=== PATIENT | female | born 1940 | race Caucasian/White ===

== ENCOUNTER 2017-01-15 14:36 | Emergency (ER) | payer MEDICARE, OTHER ==
--- NOTE | 2017-01-15 16:32 | EDM.PDOC ---
ED HPI GENERAL MEDICAL PROBLEM - General Chief Complaint: Lower Extremity Injury/Pain Stated Complaint: POST SURGICAL ISSUES Time Seen by Provider: 01/15/17 14:48 Source of Information: Reports: Patient, Family, RN Notes Reviewed - History of Present Illness INITIAL COMMENTS - FREE TEXT/NARRATIVE: 76-year-old lady presents with left leg swelling, warmth or erythema. She did have cardiac bypass surgery about 2-1/2 weeks ago. Veins were harvested from her left leg. She has had increased swelling and bruising of the left leg since surgery. The bruising is starting to get better. However yesterday and today the warmth and erythema are worse. When she or family called to visit with her providers in [place] they suggested she come here to the ED for evaluation. She is not having chest pain or difficulty breathing. No fever or chills. No swelling or discomfort of the right lower extremity. 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: Musculoskeletal History: Reports: Arthritis Endocrine/Metabolic History: Reports: Diabetes, Type II Social & Family History - Tobacco Use Smoking Status *Q: Never Smoker Second Hand Smoke Exposure: No - Caffeine Use Caffeine Use: Reports: Coffee - Recreational Drug Use Recreational Drug Use: No Review of Systems - Review of Systems Review Of Systems: See Below Mouth/Throat: Reports: No Symptoms Respiratory: Denies: Shortness of Breath, Pleuritic Chest Pain Cardiovascular: Reports: Chest Pain GI/Abdominal: Denies: Abdominal Pain (Mild incisional pain only), Nausea, Vomiting Musculoskeletal: Reports: Leg Pain (She does have some discomforts of the left lower leg just below the knee where there is an area of increased swelling and also some discomfort more distally toward the ankle posteriorly.). Denies: Shoulder Pain, Arm Pain, Back Pain Skin: Reports: Bruising (Large areas of bruising left lower extremity above and below the knee) Neurological: Denies: Numbness, Tingling ED EXAM, GENERAL - Physical Exam Exam: See Below General Appearance: Alert, No Apparent Distress Throat/Mouth: Normal Inspection, Normal Oropharynx Head: Atraumatic Respiratory/Chest: No Respiratory Distress, Lungs Clear, Normal Breath Sounds Cardiovascular: Tachycardia GI/Abdominal: Soft, Non-Tender Back Exam: No: CVA Tenderness (L), CVA Tenderness (R) Extremities: Pedal Edema (Moderate edema of the left lower extremity with areas of warmth and erythema posterior to the knee and of the left lower leg more anteriorly than posteriorly. No major posterior tenderness, right leg without warmth swelling or edema) Course - Vital Signs Last Recorded V/S: Last Vital Signs Temp 99.0 F 01/15/17 14:43 Pulse 103 H 01/15/17 14:43 Resp 16 01/15/17 14:43 BP 135/56 L 01/15/17 14:43 Pulse Ox 97 01/15/17 14:43 - Orders/Labs/Meds Labs: Laboratory Tests 01/15/17 01/15/17 Range/Units 15:57 15:57 WBC 9.12 (3.98-10.04) K/mm3 RBC 2.79 L (3.98-5.22) M/mm3 Hgb 8.3 L (11.2-15.7) gm/L Hct 24.8 L (34.1-44.9) % MCV 88.9 (79.4-94.8) fl MCH 29.7 (25.6-32.2) pg MCHC 33.5 (32.2-35.5) g/dl RDW Std Deviation 47.7 H (36.4-46.3) fL Plt Count 441 H (182-369) K/mm3 MPV 8.9 L (9.4-12.3) fl Neut % (Auto) 79.3 H (34.0-71.1) % Lymph % (Auto) 10.0 L (19.3-51.7) % Beckham % (Auto) 9.1 (4.7-12.5) % Eos % (Auto) 1.0 (0.7-5.8) Baso % (Auto) 0.2 (0.1-1.2) % Neut # (Auto) 7.23 H (1.56-6.13) K/mm3 Lymph # (Auto) 0.91 L (1.18-3.74) K/mm3 Beckham # (Auto) 0.83 H (0.24-0.36) K/mm3 Eos # (Auto) 0.09 (0.04-0.36) K/mm3 Baso # (Auto) 0.02 (0.01-0.08) K/mm3 Sodium 121 L (136-145) mEq/L Potassium 4.3 (3.5-5.1) mEq/L Chloride 90 L (98-107) mEq/L Carbon Dioxide 24 (21-32) mEq/L Anion Gap 11.3 (5-15) BUN 20 H (7-18) mg/dL Creatinine 1.6 H (0.55-1.02) mg/dL Est Cr Clr Drug Dosing 22.92 mL/min Estimated GFR (MDRD) 31 (>60) mL/min BUN/Creatinine Ratio 12.5 L (14-18) Glucose 208 H (83-115) mg/dL Calcium 10.0 (8.5-10.1) mg/dL Total Bilirubin 0.4 (0.2-1.0) mg/dL AST 24 (15-37) U/L ALT 36 (14-59) U/L Alkaline Phosphatase 115 (46-116) U/L Total Protein 5.9 L (6.4-8.2) g/dl Albumin 2.3 L (3.4-5.0) g/dl Globulin 3.6 gm/dL Albumin/Globulin Ratio 0.6 L (1-2) - Re-Assessments/Exams Free Text/Narrative Re-Assessment/Exam: 01/15/17 17:35 ultrasound of leg is negative for DVT. I believe her erythema and warmth is primarily inflammatory reaction from blood in the tissue of the lower leg. She and family state the bruising was actually worse a few days ago but she still does have a moderate amount of bruising present. Her hgb today is 8.3. She is afebrile. White blood count is fine. Chemistries are fine. I will start her on cephalexin 500 mg 3 times a day for 1 week to cover for possible infection componentbut once again I feel this is primarily inflammatory reaction from the prior surgery and hemorrhage in the leg. This has been discussed with patient and her family. I discussed with patient that she should start taking iron supplement once or twice daily. Incised the need for aggressive elevation, calf flexion exercising to try and improve blood flow and to return to ED as needed if symptoms worsening in any way. Departure - Departure Time of Disposition: 17:20 Disposition: Home, Self-Care 01 Condition: Fair Clinical Impression: Leg edema - Discharge Information Prescriptions: Cephalexin 500 mg PO TID #20 capsule Instructions: Edema Referrals: Chino Atkinson MD [Primary Care Provider] - Forms: ED Department Discharge Additional Instructions: The ultrasound of your leg does show a lot of swelling but does not show any sign of blood clot or what we call deep venous thrombosis. Continue your daily aspirin and other medications as prescribed, work hard to keep her leg elevated as much as possible. Work your calf muscle with movement of your foot as discussed multiple times throughout the day. Cephalexin antibiotic to cover for possible infection, take that 3 times daily for 1 week until gone. Return to ED if symptoms worsening in any way.
--- NOTE | 2017-01-15 17:26 | US ---
Left lower extremity deep venous ultrasound: Duplex and color flow imaging was obtained of the left common femoral, superficial femoral, popliteal, posterior tibial and proximal peroneal veins. Peroneal veins more distally could not be visualized. Greater saphenous vein not seen compatible with previous surgery. Findings: Normal phasic flow, augmentation and compression is seen. Scattered fluid is seen within the medial proximal thigh to the ankle. Findings presumably are due to previous surgery with liquefying hematomas. Abscess formation is possible but this should be evident clinically if present. Impression: 1. No findings of deep venous thrombosis within the left lower extremity. 2. Scattered areas of fluid from the proximal mid thigh inferiorly to the ankle. Discussion as noted above. Diagnostic code #3
[2017-01-15 17:47] VITALS: BP 147/56
== END 2017-01-15 17:27 | disposition home or self-care (01) ==
LOC: JD.ED 14:36
DX: R60.0 Localized edema (principal); I10 Essential (primary) hypertension; M19.90 Unspecified osteoarthritis, unspecified site; E11.9 Type 2 diabetes mellitus without complications; Z95.1 Presence of aortocoronary bypass graft
CPT/HCPCS: 36415; 80053; 85025; 93971-26-LT; 93971-LT; 99283; 99284-25